=== PATIENT | female | born 1975 | race Caucasian/White ===

== ENCOUNTER 2021-10-20 08:39 | Emergency (ER) | payer BC, SELFPAY ==
[2021-10-20 08:48] VITALS: BP 151/99; PULSE 87; RESP 20; TEMP 37.2; O2SAT 99
--- NOTE | 2021-10-20 09:05 | ED.ABDPAIN ---
HPI - Abdominal Pain General Chief Complaint: Abdominal Pain Stated Complaint: abdominal pain, nausea Source: patient Mode of arrival: ambulatory Limitations: no limitations History of Present Illness HPI narrative: Patient presents for evaluation of abdominal pain for the last 2 days. Symptoms are intermittent, occurring every 5 minutes. Pain is primarily in the epigastric region described as cramping . She is experienced nausea without vomiting. No fever, chills, urinary symptoms, vaginal bleeding or discharge. She had some diarrhea 2 days ago and yesterday. She had a solid bowel movement today. She has had similar symptoms with colitis in the past. Antibiotics have helped historically. She is not taking any medications for her symptoms. No additional complaints or concerns. Related Data Allergies Allergy/AdvReac Type Severity Reaction Status Date / Time No Known Allergies Allergy Unverified 12/03/14 13:20 Review of Systems Review of Systems: CONSTITUTIONAL: Denies fever, chills, or sweats. EYES: Denies visual changes, redness, or discharge. ENT: Denies rhinorrhea, congestion, sore throat, or otalgia. CARDIOVASCULAR: Denies chest pain, palpitations, or edema. RESPIRATORY: Denies cough or dyspnea. GASTROINTESTINAL: Reports abdominal pain and nausea. Denies vomiting or diarrhea. GENITOURINARY: Denies dysuria or hematuria. SKIN: Denies rash or itching. MUSCULOSKELETAL: Denies back pain, joint pain, or myalgia. NEUROLOGIC: Denies headache, numbness, dizziness, or weakness. PSYCHIATRIC: Denies anxiety or depression. PMFSH Past Medical History Medical History History of colitis Surgical History Surgical History No pertinent past surgical history Family History Family History Grandparent Diabetes mellitus Mother Hypertension Social History Social History Smoking status: Never smoker Alcohol intake: never Substance use: never Living arrangements: with family Gender identity (if verbalized by the patient): Female Spiritual care concerns: No Exam Narrative: GENERAL: Well-appearing, well-nourished, and in no acute distress. HEAD: Normocephalic, atraumatic. EYES: PERRLA and EOMI. ENT: Nares clear, no rhinorrhea or epistaxis. Mucous membranes moist. Oropharynx without tonsillar hypertrophy exudate or other lesions. Bilateral TMs pearly segura nonbulging NECK: Supple. No adenopathy or masses. No carotid bruits or JVD CHEST: Clear to auscultation. No respiratory distress. No wheezes rales or rhonchi HEART: Regular rate and rhythm. No murmur heard. Normal peripheral pulses. ABDOMEN: Soft, mild diffuse abdominal tenderness without rebound or guarding. Abdomen is nondistended, normal active bowel sounds. EXTREMITIES: Normal range of motion. No edema. SKIN: Warm, dry, no rash. NEURO: No focal deficits. Alert and oriented x3. PSYCH: Normal mood and affect. Course Course Level of Care: Express Care Visit Vital Signs Vital signs: Vital Signs Temperature 37.2 C 10/20/21 08:48 Pulse Rate 87 10/20/21 08:48 Respiratory Rate 20 10/20/21 08:48 Blood Pressure 151/99 H 10/20/21 08:48 Pulse Oximetry 99 10/20/21 08:48 Temperature 37.2 C 10/20/21 08:48 Pulse Rate 87 10/20/21 08:48 Respiratory Rate 20 10/20/21 08:48 Blood Pressure 151/99 H 10/20/21 08:48 Pulse Oximetry 99 10/20/21 08:48 MDM - Abdominal Pain MDM Narrative Medical decision making narrative: This is a 46-year-old female who presented for evaluation of intermittent abdominal pain she has a history of colitis and current symptoms seem consistent with that. She has some diffuse abdominal tenderness on exam but has no rebound or guarding. I advised that she go to
== END 2021-10-20 09:29 | disposition short-term general hospital (02) ==
PROVIDERS: Emergency Provider Nurse Practitioner; PCP Family Medicine
DX: R10.9 Unspecified abdominal pain (principal); R11.0 Nausea
CPT/HCPCS: 99202; G0463

== ENCOUNTER 2021-10-20 09:23 | Observation (INO) | payer BC, SELFPAY ==
--- NOTE | ~2021-10-20 | CT_ITS ---
EXAMINATION: CT abdomen pelvis w con DATE: 10/20/2021 10:57 INDICATION: Periumbilical abdominal pain. Nausea. Diarrhea. TECHNIQUE: Computed tomography (CT) of the abdomen and pelvis was performed with 100 mL Omnipaque 350 intravenous contrast. Automated exposure control and iterative reconstruction technique were employe d. The dose-length product was 1413.48 mGy-cm. COMPARISON: CT abdomen and pelvis 07/03/2018 FINDINGS: The visualized portions of the lung bases demonstrate minimal atelectasis. No pleural effus ion. The heart size is normal. No pericardial effusion. There is a 5 mm cyst in the liver. The gallbl adder, spleen, pancreas, adrenal glands, and kidneys are normal. There is diverticulosis of the colon . The appendix is normal. There is wall thickening of the distal 40 cm of ileum. There is dilated sma ll bowel proximal to this area. There is wall thickening from the distal transverse colon to the sigm oid colon. There is a small volume of ascites. There are no pathologically enlarged lymph nodes. Ther e is severe lumbar spondylosis. IMPRESSION: 1. Wall thickening of colon and distal ileum, consistent with enterocolitis. 2. Mildly dilated mid small bowel, consistent with adynamic ileus versus partial small bowel obstruct ion. 3. Small volume of ascites. Reviewed, dictated and finalized at location A. IMPRESSION: 1. Wall thickening of colon and distal ileum, consistent with enterocolitis. 2. Mildly dilated mid small bowel, consistent with adynamic ileus versus partia l small bowel obstruction. 3. Small volume of ascites.
--- NOTE | ~2021-10-20 | XR_ITS ---
EXAMINATION: XR abdomen obstructive series DATE: 10/21/2021 10:21 INDICATION: Bowel obstruction. TECHNIQUE: Upright and supine views of the abdomen on 3 radiographs were obtained. COMPARISON: CT abdomen and pelvis 10/20/2021 FINDINGS: There are dilated loops of small bowel. The colon is normal in caliber. No free intraperito cele gas. IMPRESSION: 1. Persistently dilated small bowel, consistent with adynamic ileus versus small bowel obstruction. Reviewed, dictated and finalized at location A. IMPRESSION: 1. Persistently dilated small bowel, consistent with adynamic ileus versus smal l bowel obstruction.
[2021-10-20 09:40] VITALS: BP 147/99; PULSE 93; RESP 16; TEMP 36.7; O2SAT 98
--- NOTE | 2021-10-20 10:01 | ED.ABDPAIN ---
HPI - Abdominal Pain General Chief Complaint: Abdominal Pain Stated Complaint: abd pain, cramping, hx of diverticulitis Time Seen by Provider: 10/20/21 09:53 Source: RN notes reviewed History of Present Illness HPI narrative: Patient presents emergency room from home for abdominal pain. Patient states pain began 2 days ago. The pain is located in the mid and lower abdomen described as cramping and nature states the pain does not radiate. States it is associate with nausea. She denies any fevers or chills vomiting diarrhea or any other symptoms. She gone to urgent care and was referred to the ER for further evaluation states she does have a history of colitis and diverticulitis patient did not taking pain medication this morning Related Data Allergies Allergy/AdvReac Type Severity Reaction Status Date / Time No Known Allergies Allergy Verified 10/20/21 10:05 Review of Systems Review of Systems: Gen.: Denies fevers or chills ENT: Denies congestion Respiratory: Denies shortness of breath or cough CV: Denies chest pain or palpitations GI: See HPI denies burning, urgency, frequency or hematuria Musculoskeletal: Denies back pain or muscle pain Neuro: Denies numbness, tingling, weakness or focal weakness Skin: Denies rash Except as documented, all other systems reviewed and negative [facility] Past Medical History Medical History History of colitis Surgical History Surgical History No pertinent past surgical history Family History Family History Grandparent Diabetes mellitus Mother Hypertension Social History Social History Smoking status: Never smoker Alcohol intake: never Substance use: never Gender identity (if verbalized by the patient): Female Spiritual care concerns: No Exam Narrative: APPEARANCE: No acute distress, nontoxic, resting in bed HEENT: Normocephalic, atraumatic, OMM RESPIRATORY: No respiratory distress, clear to auscultation bilaterally with no rhonchi wheezing or rales CARDIOVASCULAR: RRR s murmur ABDOMINAL: Soft nondistended tender palpation in right lower quadrant and left lower quadrant no tenderness right upper quadrant left lower quadrant rebound or guarding MUSCULOSKELETAl: Moves all extremities. No clubbing, cyanosis or edema. NEURO: Awake and alert. Following commands, speech normal, no focal deficits SKIN:: Warm, dry. Normal Color PSYCHIATRIC: Normal affect/mood Course Course Emergency Course: Discussed with Dr. Martínez with admission with consult to general surgery Discussed Dr. Stallings presentation work-up agrees with consult at this time with no active vomiting agrees with plan for no NG tube Discussed with patient and family results of workup and diagnosis. Discussed need for admission. Patient and family understand and agree to current treatment plan Vital Signs Vital signs: Vital Signs Temperature 98.1 F 10/20/21 09:40 Pulse Rate 93 10/20/21 09:40 Respiratory Rate 16 10/20/21 09:40 Blood Pressure 147/99 H 10/20/21 09:40 Pulse Oximetry 98 10/20/21 09:40 Oxygen Delivery Room Air 10/20/21 09:40 Temperature 97.9 F 10/20/21 12:08 Pulse Rate 71 10/20/21 12:08 Respiratory Rate 16 10/20/21 12:08 Blood Pressure 138/87 10/20/21 12:08 Pulse Oximetry 100 10/20/21 12:08 Oxygen Delivery Room Air 10/20/21 09:40 MDM - Abdominal Pain Lab Data Result diagrams: 10/20/21 10:06 10/20/21 10:06 Labs: Lab Results 10/20/21 10/20/21 10/20/21 Range/Units 10:06 10:06 10:06 WBC 12.9 H (4.5-10.0) K/mm3 RBC 4.92 (4.2-5.4) M/mm3 Hgb 14.3 (12.0-15.0) g/dL Hct 42.6 (37.0-47.0) % MCV 86.6 (80-100) fl MCH 29.1 (26-34) pg MCHC 33.6 (32-36
[2021-10-20] MEDS: SODIUM CHLORIDE 0.9% IV 1,000 ML 999 ML IV CONT (10:13)
[2021-10-20] MEDS: ONDANSETRON INJ 4 MG/2 ML VIAL IV PUSH (10:13)
[2021-10-20] MEDS: KETOROLAC 30 MG/ML VIAL (*BKC) IV PUSH (10:13)
[2021-10-20 10:14] LABS: Basophils Percent Auto 0.3 % (0.2-1.2); Eosinophils Absolute Auto 0.2 K/mm3 (0-0.3); Eosinophils Percent Auto 1.4 % (0-4.4); Hematocrit 42.6 % (37.0-47.0); Hemoglobin 14.3 g/dL (12.0-15.0); Immature Granulocyte Absolute 0.03 K/mm3 (0.00-0.031); Immature Granulocyte Percent A 0.2 % (0-0.5); Lymphocytes Percent Auto 10.9 % (18.3-44.2); Mean Corpuscular HGB Conc 33.6 g/dl (32-36); Mean Corpuscular Hemoglobin 29.1 pg (26-34); Mean Corpuscular Volume 86.6 fl (80-100); Mean Platelet Volume 10.8 fl (7.4-10.4); Monocytes Absolute Auto 0.5 K/mm3 (0.1-0.6); Neutrophils Absolute Auto 10.7 K/mm3 (1.3-6.7); Neutrophils Percent Auto 83.2 % (45.5-73.1); Platelet Count Result 343 k/mm3 (150-375); Red Blood Count 4.92 M/mm3 (4.2-5.4); Red Cell Distribution Width 13.2 % (11.5-14.5); White Blood Count 12.9 K/mm3 (4.5-10.0)
[2021-10-20 10:27] LABS: Alanine Aminotransferase 16 U/L (6-35); Albumin Level 4.7 g/dL (3.5-5.1); Alkaline Phosphatase 91 U/L (38-126); Anion Gap 14 mmol/L (8-16); Aspartate Amino Transferase 20 U/L (14-36); Bilirubin,Total 0.6 mg/dL (0.2-1.3); Blood Urea Nitrogen 7 mg/dL (7-17); Carbon Dioxide 27 mmol/L (22-30); Chloride 99 mmol/L (98-107); Estimated CRCL calculation 109 ml/min; Estimated Glomerular Filt Rate > 60; Glucose 113 mg/dL (65-110); Lipase 24 U/L (23-300); Potassium 4.2 mmol/L (3.4-5.0); Sodium 140 mmol/L (137-145)
[2021-10-20 10:34] LABS: Appearance Urine Clear (Clear); Bilirubin Urine 1+ (Negative); Blood Urine 2+ (Negative); Color Urine Yellow (Yellow); Glucose Urine UA Negative (Negative); Ketones Urine Trace mg/dL (Negative); Leukocyte Esterase Ur Negative LEU/UL (Negative); Nitrate Urine Negative (Negative); Protein Urine Negative (Negative); Specific Grav Ur 1.025 (1.001-1.035); Urobilinogen Urine 0.2 mg/dL (<2.0)
[2021-10-20 10:50] LABS: Add Urine Microscopic? YES
--- NOTE | 2021-10-20 10:50 | PC.NURSE ---
Pt to CT scan via stretcher at this time.
[2021-10-20 10:55] LABS: Bacteria Urine Trace /hpf; Mucus Urine Moderate /lpf; RBC Urine 0-2 /hpf (0-2); Squamous Epithelial Cell Urine Many /hpf (Few); WBC Urine 0-3 /hpf (0-3)
[2021-10-20 12:08] VITALS: BP 138/87; PULSE 71; RESP 16; TEMP 36.6; O2SAT 100
[2021-10-20 12:31] LABS: Lactic Acid Reflex 0.7 mmol/L (0.7-2.0)
--- NOTE | 2021-10-20 12:48 | ADMGEN ---
This patient, Faith Palomares, was admitted to 2 Medical Room 255-. Patient/family oriented to hospital policies and general routines including ID bracelet, bed and alarms, visiting hours, pain management, procedures, bathroom and other care routines, personal items, smoking policy, room service/diet, and visiting hours. Information on how to activate the Rapid Response Team has been discussed. Patient/Family are encouraged to report perceived risks to care and to ask questions if they do not understand what they are told or what they should do.
--- NOTE | 2021-10-20 13:15 | PM.CNGS ---
Assessment and Plan Assessment and plan (1) Enterocolitis: Code(s): K52.9 - Noninfective gastroenteritis and colitis, unspecified Status: Acute Assessment and Plan: exam largely benign, will start clears, IV abx, GI consult (2) Partial obstruction of small intestine: Code(s): K56.600 - Partial intestinal obstruction, unspecified as to cause Status: Acute Assessment and Plan: exam benign, will start clears History of Present Illness Consult details Consult date: 10/20/21 Reason for consult: abdominal pain Requesting physician: Mateo Kong MD Narrative: The patient is a 46-year-old female presenting to the emergency department complaining of diffuse, crampy lower abdominal pain for the past 42-72 hours. The patient reports the pain comes in waves and can be quite severe. The patient reports associated nausea, bloating, poor appetite. The patient reports she had a similar episode about a year ago and was diagnosed with colitis. Workup in the emergency department, including imaging, is significant for enterocolitis, early small-bowel obstruction. Review of Systems Constitutional: Constitutional: Reports as per HPI, Reports anorexia, Denies chills, Denies fatigue, Denies fever(s), Denies headache(s), Reports lethargy, Denies malaise, Reports poor appetite, Denies weakness, Denies weight gain and Denies weight loss Eyes: Eyes: Reports no additional eye complaints ENT: Denies dysphagia, Denies headache(s), Denies hearing loss and Denies sore throat Cardiovascular: Cardiovascular: Denies chest pain, Denies syncope, Denies irregular heart rhythm, Denies leg edema and Denies dyspnea Respiratory: Respiratory: Denies cough and Denies dyspnea Gastrointestinal: Gastrointestinal: Reports as per HPI, Reports abdominal pain, Reports bloating, Denies change in bowel habits, Denies change in stool character, Denies constipation, Denies dysphagia, Denies heartburn, Denies diarrhea, Reports nausea and Denies vomiting Genitourinary: Genitourinary: Denies urinary frequency, Denies dysuria and Denies urinary urgency Musculoskeletal: Musculoskeletal: Denies myalgias, Denies arthralgias and Denies muscle cramps Integumentary/Breasts: Skin/Breast: Denies non-healing lesions and Denies rash Neurologic: Denies syncope, Denies headache(s) and Denies loss of vision Psychiatric: Psychiatric: Reports no additional psychiatric complaints Endocrine: Endocrine: Denies change in body appearance and Denies fatigue Hematologic/Lymphatic: Hematologic/Lymphatic: Denies easy bleeding, Denies easy bruising and Denies lymphadenopathy Allergic/Immunologic: Allergic/Immunologic: Reports no additional allergic/immunologic complaints [facility] Past Medical History Medical History Colitis Surgical History Surgical History History of 2 sections History of foot surgery Plantar fasciotomy. Family History Family History Grandparent Diabetes mellitus Mother Hypertension Social History Social History Social History: Surrogate medical decision maker: Clark Palomares, spouse. Code status: Full code. Smoking status: Never smoker Alcohol intake: never Substance use: never Spiritual care concerns: No Meds Home Medications and Allergies Allergies Allergy/AdvReac Type Severity Reaction Status Date / Time No Known Allergies Allergy Verified 10/20/21 10:05 Vital Signs Vital Signs - 24 hr 10/20/21 09:40 10/20/21 12:08 Temperature 36.7 C 36.6 C Pulse Rate 93 71 Respiratory Rate 16 16 Blood Pressure 147/99 H 138/87 Pulse Oximetry 98 100 Oxygen Delivery Room Air Exam Const: General: cooperative, no acute distress, tired appearing and uncomfortable Nutritional Appe
[2021-10-20 13:25] VITALS: BMI 45.6
[2021-10-20 13:34] VITALS: BP 136/76; PULSE 70; RESP 17; TEMP 36.7; O2SAT 98
[2021-10-20] MEDS: SODIUM CHLORIDE 0.9% IV 1,000 ML 125 ML IV CONT ×2 (13:47→22:14)
--- NOTE | 2021-10-20 14:35 | PC.NURSE ---
Called Minda to notify her that patient has nothing ordered for pain and she did not answer. Left voicemail stating paitent's abdominal pain in 5/10 and left call back number.
[2021-10-20] MEDS: MORPHINE SULFATE (*CRX) 2 MG/ML INJ IV PUSH ×2 (16:26→23:17)
--- NOTE | 2021-10-20 21:00 | PM.IMHP ---
H&P: HPI History of Present Illness Date/Time: 10/20/21 21:00 Chief Complaint: Abdominal pain. Narrative: This is a 46 female with history of enteritis who presented to the emergency department from home for evaluation of abdominal pain for the past 2 days. She reports a gradual onset of nonradiating, mid to lower abdominal cramping pain that seems to come and go in waves of intensity associated with nausea, bloating, and a poor appetite. She had a similar episode about a year ago at which time she was diagnosed with colitis and an episode in 2016 where she was noted to have severe terminal ileus on imaging. Today a CT of the abdomen and pelvis shows wall thickening of the colon and distal ileum consistent with enterocolitis and mildly dilated mid small bowel consistent with ileus versus partial small-bowel obstruction and she is being admitted in this setting for further treatment and evaluation. As the day has progressed, she has started passing gas and she seems to be feeling a bit better. She was able to tolerate a clear liquid diet this evening without nausea or vomiting. She still has some mild bloating however. She denies fever, chills, and sweats. Weight has remained stable. She has no known history of inflammatory bowel disease and she has never had a colonoscopy. Review of Systems Review of Systems: Twelve systems were reviewed and are negative except for as per HPI. [facility] Past Medical History Medical History Colitis Degenerative disc disease Urinary tract infection Surgical History Surgical History History of 2 sections History of foot surgery Plantar fasciotomy. Family History Family History Grandparent Diabetes mellitus Mother Hypertension Social History Social History Social History: Surrogate medical decision maker: Clark Palomares, spouse. Code status: Full code. Smoking status: Never smoker Second hand tobacco smoke exposure: No Alcohol intake: never Substance use: never Spiritual care concerns: No Meds Home Medications and Allergies Home Medications Medication Instructions Recorded Confirmed Type No Home Medications 10/20/21 10/20/21 History Allergies Allergy/AdvReac Type Severity Reaction Status Date / Time No Known Allergies Allergy Verified 10/20/21 10:05 Vital Signs Vital Signs - 24 hr 10/20/21 09:40 10/20/21 12:08 Temperature 98.1 F 97.9 F Pulse Rate 93 71 Respiratory Rate 16 16 Blood Pressure 147/99 H 138/87 Pulse Oximetry 98 100 Oxygen Delivery Room Air Exam Narrative: General: Well-developed female lying on her right side in bed in no distress. Weight: 20.6 kg. BMI: 45.6. HEENT: PERRL, EOMI. Sclera anicteric. Tacky mucous membranes. Neck: Supple. Respiratory: Lungs are clear to auscultation bilaterally. Cardiovascular: Regular rate and rhythm with S1-S2. Gastrointestinal: Abdomen is soft and obese with positive bowel sounds. She has mild tenderness to palpation diffusely throughout the abdomen. No guarding or rebound tenderness. Skin: Warm and dry. No rash or lesions on limited exam. Extremities: No cyanosis, clubbing, or edema. Radial and pedal pulses intact. Neurological: Alert. Cranial nerves 2-12 are grossly intact. No gross focal deficits to casual conversation. Psychiatric: Pleasant and cooperative with normal mood and affect. Judgment and insight intact. H&P: Results Labs Labs: Short CBC 10/20/21 Range/Units 10:06 WBC 12.9 H (4.5-10.0) K/mm3 Hgb 14.3 (12.0-15.0) g/dL Hct 42.6 (37.0-47.0) % Plt Count 343 (150-375) k/mm3 [facility] 10/20/21 10:06 Sodium 140 Potassium 4.2 Chloride 99 Carbon Dioxide 27 BUN 7 Creatinine 0.70 Glucose 113 H Calcium 9.
[2021-10-20 21:12] VITALS: BP 129/83; PULSE 72; RESP 18; TEMP 36.7; O2SAT 99
[2021-10-20] MEDS: traMADol HCL (*CRX) 50 MG TABLET PO (22:16)
[2021-10-21] MEDS: traMADol HCL (*CRX) 50 MG TABLET PO (04:16)
[2021-10-21 05:01] LABS: Basophils Percent Auto 0.4 % (0.2-1.2); Eosinophils Absolute Auto 0.2 K/mm3 (0-0.3); Eosinophils Percent Auto 4.1 % (0-4.4); Hemoglobin 10.7 g/dL (12.0-15.0); Immature Granulocyte Absolute 0.01 K/mm3 (0.00-0.031); Immature Granulocyte Percent A 0.2 % (0-0.5); Lymphocytes Absolute Auto 1.68 K/mm3 (0.9-3.2); Lymphocytes Percent Auto 31.3 % (18.3-44.2); Mean Corpuscular HGB Conc 32.4 g/dl (32-36); Mean Corpuscular Hemoglobin 29.2 pg (26-34); Mean Corpuscular Volume 89.9 fl (80-100); Mean Platelet Volume 10.4 fl (7.4-10.4); Monocytes Absolute Auto 0.3 K/mm3 (0.1-0.6); Monocytes Percent Auto 5.8 % (2.6-8.5); Neutrophils Absolute Auto 3.1 K/mm3 (1.3-6.7); Neutrophils Percent Auto 58.2 % (45.5-73.1); Platelet Count Result 200 k/mm3 (150-375); Red Blood Count 3.67 M/mm3 (4.2-5.4); Red Cell Distribution Width 13.3 % (11.5-14.5); White Blood Count 5.4 K/mm3 (4.5-10.0)
[2021-10-21 05:17] LABS: Alanine Aminotransferase 12 U/L (6-35); Albumin Level 3.4 g/dL (3.5-5.1); Alkaline Phosphatase 63 U/L (38-126); Anion Gap 12 mmol/L (8-16); Aspartate Amino Transferase 18 U/L (14-36); Bilirubin,Total 0.4 mg/dL (0.2-1.3); Blood Urea Nitrogen 4 mg/dL (7-17); Calcium 7.9 mg/dL (8.4-10.2); Carbon Dioxide 25 mmol/L (22-30); Chloride 102 mmol/L (98-107); Estimated CRCL calculation 126 ml/min; Estimated Glomerular Filt Rate > 60; Glucose 99 mg/dL (65-110); Magnesium 1.9 mg/dL (1.6-2.3); Potassium 3.6 mmol/L (3.4-5.0); Sodium 139 mmol/L (137-145)
[2021-10-21 05:38] VITALS: BP 115/62; PULSE 70; RESP 17; TEMP 37; O2SAT 98
--- NOTE | 2021-10-21 08:49 | WPDGICN ---
Assessment and Plan Assessment and plan (1) Enterocolitis: Code(s): K52.9 - Noninfective gastroenteritis and colitis, unspecified Status: Acute Assessment and Plan: Patient admitted with abdominal pain CT scan suggesting enterocolitis. This likely correlates with recent diarrhea. Infectious etiology is most likely. Inflammatory bowel disease is less likely but cannot be excluded at this time. Plan is to complete course of antibiotics. Outpatient colonoscopy can be performed electively after antibiotics have been completed. Should diarrhea recur then stool cultures should be obtained. Will advance diet initially to low-fiber diet. Discharge if pain adequately controlled in tolerating diet. GI Consult Note Consult date/time: 10/21/21 08:49 Reason for consult: Antral colitis HPI: Faith Palomares is a 46 year old female I am asked to see because of enterocolitis. Patient reports having had diarrhea on Thursday. Diarrhea resolved on Thursday but she began to have abdominal cramping. Typically she would have cramps in mid epigastric area. Pain became rather intense and for this reason went to the emergency room yesterday. CT scan revealed inflammation the terminal ileum and colon. Patient denies any bleeding. She states diarrhea is resolved and in fact has had a normal stool. She denies a fever. After admission patient and placed on broad-spectrum antibiotics. She did require pain injection initially but took oral pain medications early this morning because pain was improving. Patient's family history is noncontributory. She reports never having add a colonoscopy. Patient states 5 years ago was treated for diverticulitis. Review of Systems Review of Systems: Review of systems noncontributory. [facility] Past Medical History Medical History Colitis Degenerative disc disease Urinary tract infection Surgical History Surgical History History of 2 sections History of foot surgery Plantar fasciotomy. Family History Family History Grandparent Diabetes mellitus Mother Hypertension Social History Social History Social History: Surrogate medical decision maker: Clark Palomares, spouse. Code status: Full code. Smoking status: Never smoker Second hand tobacco smoke exposure: No Alcohol intake: never Substance use: never Spiritual care concerns: No Meds Home Medications and Allergies Home Medications Medication Instructions Recorded Confirmed Type No Home Medications 10/20/21 10/20/21 History Allergies Allergy/AdvReac Type Severity Reaction Status Date / Time No Known Allergies Allergy Verified 10/20/21 10:05 Vital Signs Vital Signs - 24 hr 10/20/21 09:40 10/20/21 12:08 10/20/21 13:34 Temperature 98.1 F 97.9 F 98.1 F Pulse Rate 93 71 70 Respiratory Rate 16 16 17 Blood Pressure 147/99 H 138/87 136/76 Pulse Oximetry 98 100 98 Oxygen Delivery Room Air 10/20/21 15:45 10/20/21 20:00 10/20/21 21:12 Temperature 98.1 F Pulse Rate 72 Respiratory Rate 18 Blood Pressure 129/83 Pulse Oximetry 99 Oxygen Delivery Room Air Room Air 10/21/21 05:38 Temperature 98.6 F Pulse Rate 70 Respiratory Rate 17 Blood Pressure 115/62 Pulse Oximetry 98 Oxygen Delivery Exam Narrative: Physical exam reveals patient to be alert. Vital signs stable. HEENT exam is unremarkable. Patient is anicteric. Lungs are clear to auscultation and percussion. Heart is without murmur or extra sounds. Abdomen bowel sounds present soft no localized tenderness at this time. No masses appreciated. Results Labs CBC & Chem 7: 10/21/21 04:54 10/21/21 04:54 Labs: Short CBC
[2021-10-21] MEDS: ACETAMINOPHEN 325 MG TABLET 650 MG PO (09:18)
[2021-10-21] MEDS: ONDANSETRON INJ 4 MG/2 ML VIAL IV PUSH (10:48)
--- NOTE | 2021-10-21 12:02 | PM.PNGS ---
Progress Note: A&P Assessment and Plan (1) Enterocolitis: Code(s): K52.9 - Noninfective gastroenteritis and colitis, unspecified Status: Acute Assessment and Plan: exam benign, cont abx, low fiber diet Subjective Subjective Date/Time Seen: 10/21/21 12:02 feels much better, no pain, hungry, dorothy clears Review of Systems Review of Systems: All systems reviewed & are unremarkable except as noted in HPI and below Exam Const: General: cooperative, comfortable and no acute distress Resp: Auscultation: clear to auscultation bilaterally Cardio: Rate: regular rate Rhythm: regular rhythm GI: Inspection: normal to inspection and non-distended GI Palp: No abdominal tenderness, Yes Soft to palpation, No Tenderness to palpation present (GI), No Guarding due to palpation present (GI) and No Rigid due to palpation Objective Data Vital Signs Vital Signs: Vital Signs - 24 hr 10/20/21 12:08 10/20/21 13:34 10/20/21 15:45 Temperature 36.6 C 36.7 C Pulse Rate 71 70 Respiratory Rate 16 17 Blood Pressure 138/87 136/76 Pulse Oximetry 100 98 Oxygen Delivery Room Air 10/20/21 20:00 10/20/21 21:12 10/21/21 05:38 Temperature 36.7 C 37.0 C Pulse Rate 72 70 Respiratory Rate 18 17 Blood Pressure 129/83 115/62 Pulse Oximetry 99 98 Oxygen Delivery Room Air 10/21/21 09:20 Temperature Pulse Rate Respiratory Rate Blood Pressure Pulse Oximetry Oxygen Delivery Room Air Intake/Output Intake/Output: Intake & Output 10/18/21 10/19/21 10/20/21 10/21/21 23:59 23:59 23:59 23:59 Intake Total 2900 2070 Output Total 600 Balance 2900 1470 Meds/Results Medications: Active Medications Generic Name Dose Route Start Last Admin Trade Name Freq PRN Reason Stop Dose Admin Acetaminophen 650 mg 10/20/21 15:34 10/21/21 09:18 Acetaminophen 325 Mg Tablet PO 650 mg Q6H PRN Administration Mild Pain (1-3) or Fever Piperacillin/Tazobactam/Dextrose 3.375 gm in 50 mls @ 100 mls/hr 10/20/21 18:00 10/21/21 05:42 Zosyn 3.375 Gm/D5w 50ml Pm IVPB Infused Q6HR NICOLAS Infusion Morphine Sulfate 2 mg 10/20/21 15:34 10/20/21 23:17 Morphine Sulfate (*Crx) 2 Mg/Ml Inj IV PUSH 2 mg Q4H PRN Administration Pain Rated 7-10 Ondansetron HCl 4 mg 10/20/21 11:38 10/21/21 10:48 Ondansetron Inj 4 Mg/2 Ml Vial IV PUSH 4 mg Q4H PRN Administration Nausea Tramadol HCl 50 mg 10/20/21 15:34 10/21/21 04:16 Tramadol Hcl (*Crx) 50 Mg Tablet PO 50 mg Q6H PRN Administration Pain Rated 4-6 Radiology Results: ITS Impressions Abdomen/Pelvis CT 10/20/21 11:03 IMPRESSION: 1. Wall thickening of colon and distal ileum, consistent with enterocolitis. 2. Mildly dilated mid small bowel, consistent with adynamic ileus versus partial small bowel obstruction. 3. Small volume of ascites. Abdomen X-Ray 10/21/21 10:24 IMPRESSION: 1. Persistently dilated small bowel, consistent with adynamic ileus versus small bowel obstruction. Labs Labs: Laboratory Results - last 24 hr 10/20/21 10/21/21 10/21/21 12:07 04:54 04:54 WBC 5.4 RBC 3.67 L Hgb 10.7 L D Hct 33.0 L MCV 89.9 MCH 29.2 MCHC 32.4 RDW 13.3 Plt Count 200 MPV 10.4 Immature Gran % (Auto) 0.2 Neut % (Auto) 58.2 Lymph % (Auto) 31.3 Hartley % (Auto) 5.8 Eos % (Auto) 4.1 Baso % (Auto) 0.4 Lymph # (Auto) 1.68 Hartley # (Auto) 0.3 Eos # (Auto) 0.2 Baso # (Auto) 0.0 Abs Immat Gran (auto) 0.01 Absolute Neuts (auto) 3.1 Absolute Nucleated RBC 0.0 Nucleated RBC % 0.0 Sodium 139 Potassium 3.6 Chloride 102 Carbon Dioxide 25 Anion Gap 12 BUN 4 L Creatinine 0.60 L Estim Creat Clear Calc 126 Estimated GFR > 60 Glucose 99 Lactic Acid 0.7 Calcium 7.9 L Magnesium 1.9 Total Bilirubin 0.4 AST 18 ALT 12 Alkaline Phosphatase 63 Total Protein 6.0 L Albumin
[2021-10-21 12:48] LABS: Hematocrit 34.7 % (37.0-47.0); Hemoglobin 11.1 g/dL (12.0-15.0)
--- NOTE | 2021-10-21 13:58 | PM.DS ---
DS: Admitting Diagnosis Discharge Date 10/21/2021 Admitting Diagnosis Enterocolitis DS: Discharge Diagnosis Discharge Diagnosis (1) Enterocolitis: Code(s): K52.9 - Noninfective gastroenteritis and colitis, unspecified Status: Acute Assessment and Plan: This was her 3rd occurrence of colitis. She has no known history of inflammatory bowel disease though she has never had a colonoscopy. She was seen in consultation by Gastroenterology during admission. She was treated with IV Zosyn during admission. Diet was slowly advanced and she was able to tolerate a bland, low-fiber diet. She will continue p.o. cefdinir and Flagyl as an outpatient to complete a 7 day course of antibiotics. Short course of analgesics and antispasmodic provided. She will need to follow-up with GI as outpatient for elective colonoscopy. (2) Partial obstruction of small intestine: Code(s): K56.600 - Partial intestinal obstruction, unspecified as to cause Status: Acute Assessment and Plan: Suggested on imaging on presentation. Patient initially made NPO and rehydrated with IV fluids. Bowel function returned and she was able to tolerate her diet. Evaluated by General surgery. (3) Normocytic anemia: Code(s): D64.9 - Anemia, unspecified Status: Acute Assessment and Plan: Hemoglobin with 4 point drop during admission Suspect dilutional effect. No evidence of bleeding. Repeat H&H stable, slightly improved. Follow up with PCP for routine monitoring Elective colonoscopy to be scheduled. DS: Summary Hospital Course Hospital Course: Date of admission: 10/20/2021 Date of discharge: 10/21/2021 Radha Palomares is a 46-year-old female with a history of colitis who presented to the emergency department on 10/20/2021 with complaints of abdominal pain ongoing for 2 days. On presentation to the ED, vital signs were stable, WBC mildly elevated at 12.9, additional laboratory workup unremarkable, and CT of the abdomen/pelvis showed wall thickening of the colon and distal ileum consistent with enterocolitis and mildly dilated mid small bowel consistent with adynamic ileus vs partial SBO. She was admitted to the hospitalist service for further evaluation and management was seen in consultation by General surgery and Gastroenterology. Please see above for further details. Symptomatic improvement with IV antibiotics and will continue p.o. antibiotics on discharge. Able to tolerate diet. Will follow up with GI as an outpatient for colonoscopy. Given patient's overall improvement, she was determined to no longer require inpatient care and was discharged in hemodynamically stable condition on 10/21/2021. Discussed with the patient worrisome signs and symptoms for which to return and she was educated on her medications. Time Spent with Patient Time attestation: Total time spent providing and/or coordinating discharge services: 38 minutes Time spent: Greater than 30 minutes Exam Narrative: General: A well-nourished, well-appearing 46-year-old female, sitting up in bed, comfortable, NARD Neuro: awake, alert and oriented x4, speech clear, no focal neuro deficits noted HEENMT: normocephalic, atraumatic, EOMI, sclerae anicteric Respiratory: clear to auscultation bilaterally, nonlabored breathing Cardio: regular rate, regular rhythm with S1-S2 Abdomen: nondistended, normoactive bowel sounds, soft, nontender to palpation Extremities: no edema, erythema, or tenderness to palpation, DP pulses 2+ bilaterally Skin: no rashes or lesions, warm and dry Psych: appropriate mood and affect, judgment and insight intact DS: Data Data Completed and Pending Labs on day of discharge: Labs from last 24 hours 10/21/21 10/21/21 10/21/21 12:44 04:54 04:54 WBC 5.4 RBC 3.67 L Hgb 11.1 L 10.7 L D Hct 34.7 L 33.0 L MCV 89.9 MCH 29.2 MCHC 32.4 RDW 13.3 Plt Count 200 MPV 10.4 Immatur
== END 2021-10-21 14:39 | disposition home or self-care (01) ==
LOC: ANHED 10:13 → ANH2MED 12:15
PROVIDERS: Physician Assistant; Admitting Provider Chiropractor; Emergency Provider Emergency Medicine; PCP Family Medicine; Visit Provider Internal Medicine
DX: K52.9 Noninfective gastroenteritis and colitis, unspecified (principal); K56.600 Partial intestinal obstruction, unspecified as to cause; R18.8 Other ascites; D64.9 Anemia, unspecified; D72.829 Elevated white blood cell count, unspecified; Z87.19 Personal history of other diseases of the digestive system
CPT/HCPCS: 36415; 74019; 74177; 80053; 81001; 81025; 83605; 83690; 83735; 85014; 85018; 85025; 96361; 96365; 96375; 96376; 99285; A9270; G0378; J1885; J2270; J2405; J2543; J7030; Q9967

== ENCOUNTER 2021-10-29 08:19 | Outpatient (CLI) | payer BC, SELFPAY ==
[2021-10-29 11:59] LABS: Toxigenic C. Diff NEGATIVE (NEGATIVE)
== END 2021-10-29 08:20 | disposition home or self-care (01) ==
LOC: ANHLAB 08:21
PROVIDERS: PCP Family Medicine; Visit Provider Internal Medicine Gastroenterology
DX: R19.7 Diarrhea, unspecified (principal)
CPT/HCPCS: 87045; 87427; 87493

== ENCOUNTER 2021-10-29 14:39 | Outpatient (CLI) | payer BC, SELFPAY ==
[2021-10-29 18:38] LABS: Basophils Absolute Auto 0.1 K/mm3 (0.0-0.1); Basophils Percent Auto 0.9 % (0.2-1.2); Eosinophils Absolute Auto 0.1 K/mm3 (0-0.3); Eosinophils Percent Auto 2.1 % (0-4.4); Hemoglobin 12.6 g/dL (12.0-15.0); Immature Granulocyte Absolute 0.02 K/mm3 (0.00-0.031); Immature Granulocyte Percent A 0.3 % (0-0.5); Lymphocytes Absolute Auto 1.81 K/mm3 (0.9-3.2); Mean Corpuscular HGB Conc 33.2 g/dl (32-36); Mean Corpuscular Hemoglobin 28.9 pg (26-34); Mean Corpuscular Volume 87.2 fl (80-100); Mean Platelet Volume 11.2 fl (7.4-10.4); Monocytes Absolute Auto 0.4 K/mm3 (0.1-0.6); Monocytes Percent Auto 6.3 % (2.6-8.5); Neutrophils Absolute Auto 4.3 K/mm3 (1.3-6.7); Neutrophils Percent Auto 63.4 % (45.5-73.1); Platelet Count Result 320 k/mm3 (150-375); Red Blood Count 4.36 M/mm3 (4.2-5.4); Red Cell Distribution Width 13.4 % (11.5-14.5); White Blood Count 6.7 K/mm3 (4.5-10.0)
[2021-10-29 19:02] LABS: Alanine Aminotransferase 42 U/L (6-35); Albumin Level 4.3 g/dL (3.5-5.1); Alkaline Phosphatase 62 U/L (38-126); Anion Gap 12 mmol/L (8-16); Aspartate Amino Transferase 40 U/L (14-36); Bilirubin,Total 0.3 mg/dL (0.2-1.3); Blood Urea Nitrogen 8 mg/dL (7-17); Calcium 8.7 mg/dL (8.4-10.2); Carbon Dioxide 26 mmol/L (22-30); Chloride 100 mmol/L (98-107); Estimated Glomerular Filt Rate > 60; Glucose 103 mg/dL (65-110); Sodium 138 mmol/L (137-145)
[2021-11-05 09:14] LABS: Gliadin AB, IgG <1.0; TTG IGA AB <1.0
== END 2021-10-29 14:40 | disposition home or self-care (01) ==
PROVIDERS: PCP Family Medicine; Visit Provider Family Medicine
DX: K52.9 Noninfective gastroenteritis and colitis, unspecified (principal); E83.51 Hypocalcemia
CPT/HCPCS: 36415; 80053; 83516; 85025; 86255

== ENCOUNTER 2021-11-12 00:51 | Day surgery (SDC) | payer BC, SELFPAY ==
[2021-10-28 13:16] VITALS: BMI 44.6
--- NOTE | 2021-11-12 07:56 | PM.HPGS ---
History of Present Illness History of Present Illness Consent: Risks, benefits, and alternatives have been discussed and questions answered. Patient agrees to proceed with procedure. Chief complaint: enterocolitis Narrative: Faith Palomares is a 46 year old female Presents for colonoscopy. Patient admitted to the hospital bowel 3 weeks ago with an enterocolitis. It was felt to be infectious in etiology. Patient treated with a full course of antibiotics. Patient reports after returning home that her bowel habits have returned to normal. She did have diarrhea related to her antibiotic usage. Patient denies any bleeding or weight loss. She presents today for colonoscopy to determine resolution of her infection and to exclude any other causes for enterocolitis. Family history is noncontributory. There is no prior history of inflammatory bowel disease. Review of Systems Review of Systems: Review of systems noncontributory. [facility] Past Medical History Medical History Degenerative disc disease Urinary tract infection Surgical History Surgical History History of 2 sections History of foot surgery Plantar fasciotomy. Family History Family History Grandparent Diabetes mellitus Mother Hypertension Social History Social History (Updated 10/29/21 @ 14:02 by Malini Lal) Social History: Surrogate medical decision maker: Clark Palomares, spouse. Code status: Full code. Caffeine-none Smoking status: Never smoker Second hand tobacco smoke exposure: No Alcohol intake: never Substance use: never Living arrangements: with family Spiritual care concerns: No Meds Home Medications and Allergies Home Medications Medication Instructions Recorded Confirmed Type No Home Medications 10/29/21 10/29/21 History Allergies Allergy/AdvReac Type Severity Reaction Status Date / Time No Known Allergies Allergy Verified 10/29/21 14:00 Exam Narrative: Physical exam reveals patient to be alert. Vital signs stable. HEENT exam is unremarkable. Patient is anicteric. Lungs are clear to auscultation and percussion. Heart is without murmur or extra sounds. Abdomen bowel sounds are present soft nontender with no organomegaly. Digital external rectal exam is normal. Assessment and Plan Assessment and plan (1) Enterocolitis: Code(s): K52.9 - Noninfective gastroenteritis and colitis, unspecified Status: Acute Assessment and Plan: Patient hospitalized recently with enterocolitis felt to be infectious in etiology. Stool cultures were unable to confirm this. Patient did improve after a course of antibiotics. Colonoscopy requested at this time to ensure resolution and exclude any other contributing causes. High-fiber diet is advised at this time. Further recommendations may be given after endoscopy. (2) Obesity: Qualifiers: Obesity type: due to excess calories Obesity classification: adult class 3 (BMI >= 40) Serious obesity comorbidity presence: without serious comorbidity Body mass index: BMI 40.0-44.9 Qualified Code(s): E66.01 - Morbid (severe) obesity due to excess calories; Z68.41 - Body mass index [BMI] 40.0-44.9, adult Code(s): E66.9 - Obesity, unspecified Status: Acute Assessment and Plan: Weight loss with calorie restriction and increase activity are encouraged.
[2021-11-12 08:09] VITALS: BP 163/91; PULSE 74; RESP 18; TEMP 37.1; O2SAT 100
[2021-11-12] MEDS: LACTATED RINGERS 1,000 ML 150 ML IV CONT (08:25)
--- NOTE | 2021-11-12 08:43 | WPDANESEPPF ---
Anes - Initial Pre Proc Eval Procedure: Operation Date: 11/12/21 09:15 Proposed Procedures p Colonoscopy - Jose M Brown MD Date/Time: 11/12/21 08:43 Surgeon: Jose M Brown MD Pre Op Diagnosis: enterocolitis Patient Data Age: 46 Gender: F Height: 1.63 m Weight: 116.4 kg Last Vital Signs Temp 98.8 F 11/12/21 08:09 Pulse 74 11/12/21 08:09 Resp 18 11/12/21 08:09 BP 163/91 H 11/12/21 08:09 Pulse Ox 100 11/12/21 08:09 O2 Del Method Room Air 11/12/21 08:09 Allergies Allergy/AdvReac Type Severity Reaction Status Date / Time No Known Allergies Allergy Verified 11/12/21 08:07 Home Medications Medication Instructions Recorded Confirmed Type No Home Medications 10/29/21 11/12/21 History Patient hx anesthesia problems: none Family hx anesthesia problems: none Results Review: All pre-operative results and documents have been reviewed as part of the pre-operative evaluation. [facility], [facility] Past Medical History Medical History Degenerative disc disease Urinary tract infection Surgical History Surgical History History of 2 sections History of foot surgery Plantar fasciotomy. Family History Family History Grandparent Diabetes mellitus Mother Hypertension Social History Social History (Updated 10/29/21 @ 14:02 by Malini Lal) Social History: Surrogate medical decision maker: Clark Palomares, spouse. Code status: Full code. Caffeine-none Smoking status: Never smoker Second hand tobacco smoke exposure: No Alcohol intake: never Substance use: never Living arrangements: with family Spiritual care concerns: No Anes - Eval Final PreProcedure Day of Procedure 11/12/21 08:43 Patient weight: morbidly obese Heart: regular rate and rhythm Lungs: clear to auscultation Airway: Mallampati scale class II Neurological: alert and oriented Last oral intake: >/= 8 hours ASA classification: III Emergent: no Anesthetic plan: proceed Anesthesia type and monitoring: general GIVS and standard monitoring Results Review: All pre-operative results and documents have been reviewed as part of the pre-operative evaluation. Informed Consent: The patient's anesthetic plan and its attendant risks and benefits were discussed with the patient/family/POA. Questions were solicited and answers provided to the satisfaction of the patient/family/POA.
[2021-11-12 09:33] VITALS: BP 136/82; PULSE 79; RESP 18; O2SAT 100
[2021-11-12 09:43] VITALS: BP 142/86; PULSE 74; RESP 18; O2SAT 100
[2021-11-12 09:53] VITALS: BP 142/94; PULSE 80; RESP 18; O2SAT 100
== END 2021-11-12 10:03 | disposition home or self-care (01) ==
PROVIDERS: PCP Family Medicine; Visit Provider Internal Medicine Gastroenterology
PROC: 0DJD8ZZ Inspection of Lower Intestinal Tract, Via Natural or Artificial Opening Endoscopic (ICD-10-PCS; CPT 45378; principal; 2021-11-12 09:15)
DX: Z09 Encounter for follow-up examination after completed treatment for conditions other than malignant neoplasm (principal); Z87.19 Personal history of other diseases of the digestive system; K64.8 Other hemorrhoids; E66.01 Morbid (severe) obesity due to excess calories; Z68.41 Body mass index [BMI] 40.0-44.9, adult
CPT/HCPCS: 45378; J2704; J7120

== ENCOUNTER 2022-04-21 07:51 | Outpatient (CLI) | payer BC, SELFPAY ==
--- NOTE | ~2022-04-21 | MM_ITS ---
EXAMINATION: MM screening [facility] BI w talisha HISTORY: Screening mammogram TECHNIQUE: Craniocaudal and mediolateral oblique 3-D tomosynthesis images were obtained and synthetic 2-D images were generated. CAD analysis was submitted and interpreted. COMPARISON: 06/07/2018, 06/04/2017 BREAST PARENCHYMAL COMPOSITION: There are scattered areas of fibroglandular density. FINDINGS: No suspicious mass, calcification, or architectural distortion are identified in either yessenia ast to suggest malignancy. There has been no suspicious interval change. IMPRESSION: 1. No mammographic evidence of malignancy. 2. Recommend routine screening mammography in one year. BI-RADS Category 1: Negative Reviewed, dictated and finalized at location A. D [employer]
== END 2022-04-21 07:52 | disposition home or self-care (01) ==
LOC: ANHIMG 07:52
PROVIDERS: PCP Family Medicine; Visit Provider Family Medicine
DX: Z12.31 Encounter for screening mammogram for malignant neoplasm of breast (principal)
CPT/HCPCS: 77063; 77067

== ENCOUNTER 2022-10-26 08:52 | Emergency (ER) | payer BC, SELFPAY ==
--- NOTE | ~2022-10-26 | XR_ITS ---
XR finger 1st RT min 2V DATE: 10/26/2022 09:12 INDICATION: Pain at first metacarpophalangeal area after injury TECHNIQUE: 3 views COMPARISON: 01/24/2013 right hand FINDINGS: No fracture or dislocation or other significant abnormality. IMPRESSION: Negative Reviewed, dictated and finalized at location A. IMPRESSION: Negative
--- NOTE | 2022-10-26 08:55 | ED.UPPEXIN ---
HPI - Extremity Injury (Upper) General Chief Complaint: Extremity Injury, Upper Stated Complaint: R HAND INJURY Time Seen by Provider: 10/26/22 08:55 Source: patient Mode of arrival: ambulatory Limitations: no limitations History of Present Illness HPI narrative: Patient is a 47-year-old female who presents with right hand pain after pushing up on a chair quickly on the edge of the chair. Patient reports there is no bruising or swelling but it is tender to touch. Patient's states she had some numbness initially but that has now resolved. Patient is still able to use hand normally. Did take Tylenol and ice with moderate relief. Related Data Home Medications Medication Instructions Recorded Confirmed No Home Medications 10/26/22 10/26/22 Allergies Allergy/AdvReac Type Severity Reaction Status Date / Time No Known Allergies Allergy Verified 08/25/22 15:30 Review of Systems Review of Systems: All systems reviewed & are unremarkable except as noted in HPI and below Constitutional: Constitutional: Denies body ache(s), Denies chills, Denies fatigue, Denies fever(s), Denies headache(s), Denies malaise and Denies weakness Eyes: Eyes: Denies blurry vision, Denies irritation and Denies loss of vision ENT: Denies otalgia, Denies headache(s), Denies nasal discharge, Denies sinus pain and Denies sore throat Cardiovascular: Cardiovascular: Denies chest pain, Denies irregular heart rhythm and Denies dyspnea Respiratory: Respiratory: Denies dyspnea Gastrointestinal: Gastrointestinal: Denies abdominal pain, Denies melena, Denies hematochezia, Denies diarrhea, Denies nausea and Denies vomiting Musculoskeletal: Musculoskeletal: Denies back pain, Denies myalgias and Reports arthralgias Integumentary/Breasts: Skin/Breast: Denies pruritus and Denies rash Neurologic: Denies headache(s), Denies loss of vision and Denies weakness Psychiatric: Psychiatric: Reports no additional psychiatric complaints Endocrine: Endocrine: Denies fatigue PMFSH Past Medical History Medical History Enterocolitis Normocytic anemia Partial obstruction of small intestine Surgical History Surgical History History of 2 sections History of foot surgery Plantar fasciotomy. Family History Family History Grandparent Diabetes mellitus Mother Hypertension Social History Social History Social History: Surrogate medical decision maker: Clark Palomares, spouse. Code status: Full code. Caffeine-none Smoking status: Never smoker Second hand tobacco smoke exposure: No Alcohol intake: never Substance use: never Living arrangements: with family Spiritual care concerns: No Comments At time of signature, agree with nursing past medical, surgical, social and family history. There is no relevant family history pertinent to the presenting complaint. Exam Const: General: cooperative, healthy appearing, comfortable, no acute distress and well nourished Nutritional Appearance: well nourished Orientation/consciousness: patient oriented x3 Limitations: no limitations HENMT: Head: normal to inspection, normocephalic and atraumatic Ears: hearing grossly normal bilaterally and external ears normal Face/Nose/Sinus: Normal external nose present, normal facial exam and face symmetric Face and sinus: normal facial exam and face symmetric Mouth: Yes lip normal Eyes: General: appearance normal, both eyes and all related structures Alignment and Position: alignment normal and position normal Periorbital: periorbital findings normal Eyelids: eyelids normal Pupils: Equal, round and reactive pupils present EOM: EOMs intact bilaterally Neck: Neck: normal visual inspection, full ROM and supple Chest: Chest palpa
[2022-10-26 09:03] VITALS: BP 128/89; PULSE 72; RESP 16; TEMP 37.1; O2SAT 98
[2022-10-26 09:04] VITALS: BP 128/89; PULSE 72; RESP 16; TEMP 37.1; O2SAT 98
== END 2022-10-26 09:33 | disposition home or self-care (01) ==
PROVIDERS: Emergency Provider Nurse Practitioner Family; PCP Family Medicine
DX: S60.221A Contusion of right hand, initial encounter (principal); T14.90XA Injury, unspecified, initial encounter
CPT/HCPCS: 73140; 99213; G0463

== ENCOUNTER 2022-10-31 08:06 | Outpatient (CLI) | payer BC, SELFPAY ==
[2022-10-31 10:13] LABS: Basophils Absolute Auto 0.1 K/mm3 (0.0-0.1); Basophils Percent Auto 0.9 % (0.2-1.2); Eosinophils Absolute Auto 0.1 K/mm3 (0-0.3); Eosinophils Percent Auto 2.1 % (0-4.4); Hematocrit 38.7 % (37.0-47.0); Hemoglobin 12.2 g/dL (12.0-15.0); Immature Granulocyte Absolute 0.01 K/mm3 (0.00-0.031); Immature Granulocyte Percent A 0.2 % (0-0.5); Lymphocytes Absolute Auto 1.55 K/mm3 (0.9-3.2); Lymphocytes Percent Auto 26.6 % (18.3-44.2); Mean Corpuscular HGB Conc 31.5 g/dl (32-36); Mean Corpuscular Hemoglobin 28.7 pg (26-34); Mean Corpuscular Volume 91.1 fl (80-100); Mean Platelet Volume 11.5 fl (7.4-10.4); Monocytes Absolute Auto 0.3 K/mm3 (0.1-0.6); Monocytes Percent Auto 5.8 % (2.6-8.5); Neutrophils Absolute Auto 3.8 K/mm3 (1.3-6.7); Neutrophils Percent Auto 64.4 % (45.5-73.1); Platelet Count Result 260 k/mm3 (150-375); Red Blood Count 4.25 M/mm3 (4.2-5.4); Red Cell Distribution Width 13.1 % (11.5-14.5); White Blood Count 5.8 K/mm3 (4.5-10.0)
[2022-10-31 10:25] LABS: Alanine Aminotransferase 16 U/L (6-35); Albumin Level 4.2 g/dL (3.5-5.1); Alkaline Phosphatase 72 U/L (38-126); Anion Gap 6 mmol/L (8-16); Aspartate Amino Transferase 24 U/L (14-36); Bilirubin,Total 0.5 mg/dL (0.2-1.3); Blood Urea Nitrogen 11 mg/dL (7-17); Carbon Dioxide 29 mmol/L (22-30); Chloride 104 mmol/L (98-107); Cholesterol 160 mg/dL (0-200); Estimated Glomerular Filt Rate > 60; Glucose 92 mg/dL (65-110); HDL Direct 45 mg/dL; Potassium 4.3 mmol/L (3.4-5.0); Sodium 139 mmol/L (137-145); Triglycerides 59 mg/dL (<150)
[2022-10-31 10:36] LABS: LDL Cholesterol Direct 93 mg/dL
[2022-10-31 10:42] LABS: Hemoglobin A1C 4.6 % (<5.7)
[2022-11-05 02:05] LABS: Immunoglobulin A 171 mg/dL (47-310); TTG IGA AB <1.0 U/mL (<15.0)
== END 2022-10-31 08:07 | disposition home or self-care (01) ==
LOC: ANHGOSHLAB 08:08
PROVIDERS: PCP Family Medicine; Visit Provider Family Medicine
DX: Z00.00 Encounter for general adult medical examination without abnormal findings (principal); K52.9 Noninfective gastroenteritis and colitis, unspecified; E83.51 Hypocalcemia; E66.01 Morbid (severe) obesity due to excess calories; Z68.42 Body mass index [BMI] 45.0-49.9, adult
CPT/HCPCS: 36415; 80053; 80061; 82784; 83036; 84443; 85025; 86364

== ENCOUNTER 2023-06-12 13:57 | Outpatient (CLI) | payer BC, SELFPAY ==
--- NOTE | ~2023-06-12 | MM_ITS ---
EXAMINATION: MM screening [facility] BI w talisha HISTORY: Screening mammogram TECHNIQUE: Craniocaudal and mediolateral oblique 3-D tomosynthesis images were obtained and synthetic 2-D images were generated. CAD analysis was submitted and interpreted. COMPARISON: 04/21/2022, 06/07/2018 bilateral screening mammogram examinations BREAST PARENCHYMAL COMPOSITION: There are scattered areas of fibroglandular density. FINDINGS: There is no evidence of suspicious mass, calcification, or architectural distortion to sugg est malignancy in either breast. There has been no suspicious interval change. IMPRESSION: 1. No mammographic evidence of malignancy. 2. Recommend routine screening mammography in one year. BI-RADS Category 1: Negative Reviewed, dictated and finalized at location A.
== END 2023-06-12 13:58 ==
LOC: MICIMG 13:58
PROVIDERS: PCP Family Medicine; Visit Provider Family Medicine
DX: Z12.31 Encounter for screening mammogram for malignant neoplasm of breast (principal)
CPT/HCPCS: 77063; 77067

== ENCOUNTER 2023-09-08 16:07 | Emergency (ER) | payer BC, SELFPAY ==
--- NOTE | ~2023-09-08 | CT_ITS ---
EXAMINATION: CT abdomen pelvis w con DATE: 09/08/2023 17:49 INDICATION: upper abd pain, N/V/D TECHNIQUE: Computed tomography (CT) of the abdomen and pelvis was performed with 100 mL Omnipaque-350 intravenous contrast. Automated exposure control and iterative reconstruction technique were employe d. The dose-length product was 1352.07 mGy-cm. COMPARISON: 10/20/2021. FINDINGS: Lower thorax: Unremarkable Liver: Subcentimeter hypodensity in the left lobe, likely cyst or hemangioma. Biliary/Gallbladder: Gallbladder is mildly distended. No inflammatory changes or stones. No bile duct dilation. Pancreas: No mass or duct dilation. Spleen: Normal. Adrenals:No mass. Kidneys: No suspicious mass, obstructing stone, or hydronephrosis. GI tract: Long segment wall edema involving the mid and distal ileum. Fluid in the colon. Mild wall e femi in the descending colon. No small or large bowel dilation. Normal appendix. Diverticulosis witho ut diverticulitis. Mesentery/Peritoneum: Mesenteric stranding and small volume mesenteric fluid in the left abdomen, estrella rounding the loops of abnormal ileum. Small volume perisplenic fluid, presumably reactive. No mesente dexter mass or gas. Retroperitoneum: No mass. Pelvis: The urinary bladder is decompressed. Uterus and bilateral ovaries. Small volume free pelvic f luid. Soft Tissues: Soft tissues and body wall unremarkable. Bones: No acute osseous finding. IMPRESSION: Mild gallbladder hydrops, may be secondary to fasting. Obstruction not excluded. Correlate with bilia ry labs. Long segment ileal wall edema, mild descending colonic wall edema, may reflect infectious or inflamma tory enterocolitis. Consider ischemic changes and there is a history of vasculitis. Adjacent mesenter ic inflammatory changes and fluid. Small volume ascites. No free air. Reviewed, dictated and finalized at location K. IMPRESSION: Mild gallbladder hydrops, may be secondary to fasting. Obstruction not excluded . Correlate with biliary labs. Long segment ileal wall edema, mild descending colonic wall edema, may reflect infectious or inflammatory enterocolitis. Consider ischemic changes and there i s a history of vasculitis. Adjacent mesenteric inflammatory changes and fluid. Small volume ascites. No free air.
[2023-09-08 16:14] VITALS: BP 179/96; PULSE 107; RESP 19; TEMP 36.7; O2SAT 97
--- NOTE | 2023-09-08 17:08 | PC.NURSE ---
patient states they are unable to urinate at this time. educated patient to use call light with any urge to provide a urine sample.
[2023-09-08 17:13] LABS: Basophils Absolute Auto 0.1 K/mm3 (0.0-0.1); Basophils Percent Auto 0.4 % (0.2-1.2); Eosinophils Absolute Auto 0.3 K/mm3 (0-0.3); Eosinophils Percent Auto 2.2 % (0-4.4); Hematocrit 42.6 % (37.0-47.0); Immature Granulocyte Absolute 0.05 K/mm3 (0.00-0.031); Immature Granulocyte Percent A 0.4 % (0-0.5); Lymphocytes Absolute Auto 1.58 K/mm3 (0.9-3.2); Lymphocytes Percent Auto 13.8 % (18.3-44.2); Mean Corpuscular HGB Conc 32.9 g/dl (32-36); Mean Corpuscular Hemoglobin 28.5 pg (26-34); Mean Corpuscular Volume 86.8 fl (80-100); Mean Platelet Volume 11.4 fl (7.4-10.4); Monocytes Absolute Auto 0.5 K/mm3 (0.1-0.6); Monocytes Percent Auto 4.3 % (2.6-8.5); Neutrophils Percent Auto 78.9 % (45.5-73.1); Platelet Count Result 349 k/mm3 (150-375); Red Blood Count 4.91 M/mm3 (4.2-5.4); Red Cell Distribution Width 13.4 % (11.5-14.5); White Blood Count 11.5 K/mm3 (4.5-10.0)
[2023-09-08] MEDS: PANTOPRAZOLE SODIUM IV 40 MG VIAL IV PUSH (17:16)
[2023-09-08] MEDS: SODIUM CHLORIDE 0.9% IV 1,000 ML 999 ML IV CONT (17:16)
[2023-09-08] MEDS: ONDANSETRON INJ 4 MG/2 ML VIAL IV PUSH (17:16)
[2023-09-08] MEDS: MORPHINE SULFATE (*CRX) 4 MG/ML INJ IV PUSH (17:20)
[2023-09-08 17:28] LABS: Alanine Aminotransferase 16 U/L (6-35); Albumin Level 4.7 g/dL (3.5-5.1); Alkaline Phosphatase 94 U/L (38-126); Anion Gap 13 mmol/L (4-12); Aspartate Amino Transferase 19 U/L (14-36); Bilirubin,Total 0.7 mg/dL (0.2-1.3); Blood Urea Nitrogen 9 mg/dL (7-17); Calcium 9.3 mg/dL (8.4-10.2); Carbon Dioxide 23 mmol/L (22-30); Chloride 101 mmol/L (98-107); Estimated CRCL calculation 107 ml/min; Estimated Glomerular Filt Rate > 60; Glucose 125 mg/dL (65-110); Lipase 40 U/L (23-300); Potassium 3.7 mmol/L (3.4-5.0); Sodium 137 mmol/L (137-145)
--- NOTE | 2023-09-08 17:29 | ED.ABDPAIN ---
HPI - Abdominal Pain General Chief Complaint: Abdominal Pain Stated Complaint: abdominal pain, n/v/d Time Seen by Provider: 09/08/23 16:57 Source: patient Mode of arrival: ambulatory Limitations: no limitations History of Present Illness HPI narrative: Patient is a 48-year-old female who presents the ED with report of abdominal pain. Patient reports abdominal pain began on Thursday night and has progressively worsened since then. Present throughout upper abdomen. She also reports diarrhea, subjective fevers, nausea/vomiting today. Denies rectal bleeding or melena. Denies hematemesis. Reports she was seen by her PCP today and prescribed dicyclomine. She attempted to take this, but denied improvement. Also tried Tylenol without improvement, which prompted her presentation. Reports history of similar symptoms 2 years ago. Denies family members with similar symptoms. Denies bad food exposure, known sick contacts. Related Data Allergies Allergy/AdvReac Type Severity Reaction Status Date / Time No Known Allergies Allergy Verified 09/08/23 10:01 Review of Systems Review of Systems: CONSTITUTIONAL: Reports subjective fevers. GASTROINTESTINAL: See HPI. GENITOURINARY: Denies dysuria or hematuria. All systems reviewed & are unremarkable except as noted in HPI and below PMFSH Past Medical History Medical History Enterocolitis Normocytic anemia Partial obstruction of small intestine Surgical History Surgical History History of 2 sections History of foot surgery Plantar fasciotomy. Family History Family History Grandparent Diabetes mellitus Mother Hypertension Social History Social History Social History: Surrogate medical decision maker: Clark Palomares, spouse. Code status: Full code. Caffeine-none Smoking status: Never smoker Second hand tobacco smoke exposure: No Alcohol intake: never Substance use: never Lack of Transportation: No Lack of Food: Never True Current Housing: I Have Housing Concerned About Future Housing: No Difficulty Paying Gas/Electric Bills: No Difficulty Paying for Meds: No Currently Unemployed: No Education: Master's Degree or Higher Difficulty w/ Childcare or Family Care: No Living arrangements: with family Spiritual care concerns: No Exam Narrative: GENERAL: Mildly uncomfortable appearing, morbidly obese with BMI of 45.4, non-toxic, in no acute distress. HEAD: Normocephalic, atraumatic. RESPIRATORY: Airway patent, respirations nonlabored. Clear to auscultation bilaterally, no rales, rhonchi, wheezing. CARDIOVASCULAR: Borderline tachycardic with regular rhythm without murmurs, rubs, or gallops. ABDOMINAL: Soft, mild diffuse tenderness throughout abdomen, more significant tenderness in epigastric region. No right upper quadrant tenderness. Nondistended. Normoactive BS. MUSCULOSKELETAL: Moves all extremities. No gross deformities. SKIN: Warm, dry, normal color. NEURO: A&O X3. Speech clear. PSYCHIATRIC: Appropriate mood and affect. Normal interaction. Course Vital Signs Vital signs: Vital Signs Temperature 98.1 F 09/08/23 16:14 Pulse Rate 107 H 09/08/23 16:14 Respiratory Rate 19 09/08/23 16:14 Blood Pressure 179/96 H 09/08/23 16:14 Pulse Oximetry 97 09/08/23 16:14 Oxygen Delivery Room Air 09/08/23 16:14 Temperature 98.5 F 09/08/23 20:25 Pulse Rate 68 09/08/23 20:25 Respiratory Rate 17 09/08/23 20:25 Blood Pressure 132/79 09/08/23 20:25 Pulse Oximetry 100 09/08/23 20:25 Oxygen Delivery Room Air 09/08/23 16:14 MDM - Abdominal Pain MDM Narrative Medical decision making narrative: Patient presented to ED with several day history of upper
[2023-09-08 17:32] VITALS: PULSE 83; RESP 17; O2SAT 97
[2023-09-08 17:59] LABS: Magnesium 2.1 mg/dL (1.6-2.3)
[2023-09-08 18:14] LABS: Appearance Urine Clear (Clear); Bacteria Urine 1+ /hpf; Bilirubin Urine Negative (Negative); Blood Urine Trace (Negative); Color Urine Yellow (Yellow); Glucose Urine UA Negative (Negative); Ketones Urine Trace mg/dL (Negative); Leukocyte Esterase Ur Negative LEU/UL (Negative); Nitrate Urine Negative (Negative); Non Pathogenic Casts 0-2; Protein Urine 2+ mg/dL (Negative); Specific Grav Ur > 1.045 (1.001-1.035); Squamous Epithelial Cell Urine Few /hpf (Few); WBC Urine 0-5 /hpf (0-3); pH Urine 5.5 (5.0-9.0)
[2023-09-08 18:17] LABS: Add Urine Microscopic? YES
[2023-09-08 18:56] LABS: Lactic Acid Reflex 0.8 mmol/L (0.7-2.0)
[2023-09-08] MEDS: CIPROFLOXACIN 500 MG TAB PO (20:23)
[2023-09-08] MEDS: metroNIDAZOLE 500 MG TABLET PO (20:23)
[2023-09-08 20:25] VITALS: BP 132/79; PULSE 68; RESP 17; TEMP 36.9; O2SAT 100
== END 2023-09-08 20:26 | disposition home or self-care (01) ==
PROVIDERS: Student in an Organized Health Care Education/Training Program; Emergency Provider Physician Assistant; PCP Family Medicine
DX: K52.9 Noninfective gastroenteritis and colitis, unspecified (principal); R10.10 Upper abdominal pain, unspecified
CPT/HCPCS: 36415; 74177; 80053; 81001; 83605; 83690; 83735; 85025; 96361; 96374; 96375; 99284; A9270; J2270; J2405; J2470; J7030; Q9967

== ENCOUNTER 2024-07-25 01:51 | Day surgery (SDC) | payer BC, SELFPAY ==
--- NOTE | 2024-07-18 12:31 | PC.NURSE ---
Report to the Outpatient Waiting Room, entrance under the green pavilion located off [facility], at time __6:15 AM on date _07/25/24 . Planned Procedure Time: __8:15 AM .? Time changes happen often and if your time is changed the preop area will call you the afternoon before. - You and your visitor will be asked to self-screen and do not enter if you have any COVID symptoms. Please call surgeon if you need to reschedule. - A mask is optional within the hospital at this time. Patients may have clear liquids (water, carbonated beverages, clear teas, apple juice) until 3 hours prior to surgery ( 5:15 AM ) with a maximum of 20 ounces. - No food from midnight until time of surgery and no smoking, or chewing tobacco (or any form of nicotine). No chewing gum, candy or mints. Take only the following medications with a SIP of water on the morning of surgery: NONE DO NOT STOP ANY OF YOUR OTHER PRESCRIPTION MEDICATIONS PRIOR TO SURGERY EXCEPT THE FOLLOWING Hold all vitamins and supplements for 3 days per anesthesiologist. Medications to discontinue per physician ZEPBOUND TOOK TODAY 07/18/24 Date to take last dose Please no make-up, nail malaysian, hairspray, perfume, deodorant, or body powder the day of surgery.? No jewelry (including any body piercings) or valuables the day of surgery, leave them at home.? Please take a shower or bath the night before, or the morning of, surgery with an antibacterial soap.? Wear comfortable, loose fitting clothing.? Children are encouraged to wear pajamas. - Jewelry must be removed prior to entering the operating room.? Rings and piercings that are not removed may be cut off. - The hospital will not accept responsibility for valuables.? - Please leave all valuables, including medications, at home the day of surgery. If you are going home after surgery, a licensed courier driver must drive you home.? - NO public transportation without another adult if you receive anesthesia. - We recommend that an adult stay with you for 24 hours following discharge. - We also recommend that you do not drive, make important decision, drink alcoholic beverages, or take any drugs that were not prescribed by your health care provider for at least 24 hours after your discharge time. For Pediatric surgeries, we recommend two adults accompany the child home. Follow any additional instructions given to you from your surgeon. Telephone instructions given to __PATIENT and asked if any additional questions and then verbalized understanding. Patient advised to call surgeon office or pre surgery nurse liaison [phone] if any additional questions.
[2024-07-18 12:40] VITALS: BMI 44.6
--- OUTSIDE RECORDS SUMMARY | 2024-07-25 01:56 | XMS_ITS | Clinical Summary ---
Author Organization [facility] Address [address] Attn: Epic Prelude ADT ABNER MARCIAL [id number] Care Team Providers Care Director Of Medical Education Name Role Phone Unavailable Primary Care Provider Unavailabl e Social History Tobacco Use Types Packs/Day Years Used Date Smoking Tobacco: Never Assessed Comments Unknown Sex and Gender Information Value Date Recorded Sex Assigned at Not on file Legal Sex Female 9:42 AM CDT Gender Identity Not on file Sexual Orientation Not on file Plan of Treatment Health Maintenance Due Date Last Done Comments DTAP/TDAP/TD VACCINES (1 - Tdap) 1993 HEPATITIS B VACCINES (1 of 3 - 19+ 3-dose series) 01/16 HPV/Cotest (21-29) 1995 CERVICAL CANCER SCREENING 01/30/2004 HPV/Cotest (30-65) 01/30/2004 PAP SMEAR 01/30/2004 BREAST CANCER SCREENING 2014 COLORECTAL SCREENING 2019 Colorectal Cancer Screening 2019 FIT-DNA Q 3 years 2019 FIT/FOBT Q 1 year 2019 Flex Sig/CT Colonography Q 5 years 2019 INFLUENZA VACCINE (#1) 2023 ZOSTER VACCINE (1 of 2) 01/30/2024
[2024-07-25 07:00] VITALS: BP 141/85; PULSE 78; RESP 16; TEMP 36.7; O2SAT 98
[2024-07-25] MEDS: ACETAMINOPHEN 500 MG TABLET 1000 MG PO (07:00)
[2024-07-25] MEDS: LACTATED RINGERS 1,000 ML 30 ML IV CONT ×2 (07:00→08:21)
--- NOTE | 2024-07-25 07:26 | WPDHPUPDATE1 ---
History and Physical Update Update Date/Time: 07/25/24 07:26 History and Physical has been reviewed, including an updated exam of the patient. There are NO changes in the patient's condition. Risks, benefits, and alternatives have been discussed and questions answered. Patient agrees to proceed with procedure.
--- NOTE | 2024-07-25 07:26 | PM.HPGS ---
History of Present Illness History of Present Illness Consent: Risks, benefits, and alternatives have been discussed and questions answered. Patient agrees to proceed with procedure. Chief complaint: post menopausal bleeding Narrative: Faith Palomares is a 49 year old female who went 18 months without a cycle and then had 4 to 5 days of postmenopausal bleeding. Options were reviewed. Labs are consistent with post menopause. Plan to proceed with D&C hysteroscopy. Risks infection, bleeding, perforation, and possible pathology are reviewed. Patient voices understanding and agrees to proceed. Review of Systems Review of Systems: not repeated day of surgery; patient states no changes in status [facility] Past Medical History Medical History (Updated 07/25/24 @ 07:30 by Chastity Man MD) Obesity, Class III, BMI 40-49.9 (morbid obesity) Colitis Surgical History Surgical History History of foot surgery Plantar fasciotomy. History of 2 sections Family History Family History Grandparent Diabetes mellitus Mother Hypertension Social History Social History Social History: Surrogate medical decision maker: Clark Palomares, spouse. Code status: Full code. Caffeine-none Smoking status: Never smoker Second hand tobacco smoke exposure: No Alcohol intake: current Alcohol use details: ONE PER MONTH Substance use: never Lack of Transportation: No Lack of Food: Never True Current Housing: I Have Housing Concerned About Future Housing: No Difficulty Paying Gas/Electric Bills: No Difficulty Paying for Meds: No Currently Unemployed: No Education: Master's Degree or Higher Difficulty w/ Childcare or Family Care: No Living arrangements: with family Spiritual care concerns: No Meds Home Medications and Allergies Home Medications ?Medication ?Instructions ?Recorded ?Confirmed ?Type cetirizine 10 mg capsule (Zyrtec) 10 mg PO DAILY PRN allergy symptoms 09/17/23 07/18/24 History doxycycline hyclate 100 mg capsule 100 mg PO BID #20 caps 04/04/24 07/18/24 Rx benzonatate 200 mg capsule 200 mg PO TID #30 caps 04/19/24 07/18/24 Rx nirmatrelvir 300 mg (150 mg See Rx Instructions PO .COMPLEX 04/25/24 07/18/24 Rx x2)-ritonavir 100 mg tablet,dose #30 ea pack (Paxlovid) tirzepatide (weight loss) 7.5 7.5 mg (0.5 mL) subcut WEEKLY #2 mL 07/12/24 07/18/24 Rx mg/0.5 mL subcutaneous pen injector (Zepbound) acetaminophen 650 mg 1,300 mg PO PRN PRN pain 07/18/24 07/18/24 History tablet,extended release (8 Hour Pain Reliever) Allergies Allergy/AdvReac Type Severity Reaction Status Date / Time No Known Allergies Allergy Verified 07/18/24 12:26 Vital Signs Vital Signs - 24 hr 07/25/24 07:00 Temperature 98.1 F Pulse Rate 78 Respiratory Rate 16 Blood Pressure 141/85 H Pulse Oximetry 98 Oxygen Delivery Room Air Exam Const: General: healthy appearing and alert Orientation/consciousness: patient oriented x3 Resp: Effort & Inspection: normal respiratory effort Auscultation: clear to auscultation bilaterally Cardio: Rate: regular rate Rhythm: regular rhythm GI: GI Palp: Yes Soft to palpation, No Tenderness to palpation present (GI) and No Palpable mass present Neuro: General: patient oriented x3 Assessment and Plan Assessment and plan (1) Post-menopausal bleeding: Code(s): N95.0 - Postmenopausal bleeding Status: Acute Assessment and Plan: Proceed with D&C hysteroscopy
--- NOTE | 2024-07-25 07:39 | WPDANESEPPF ---
Anes - Initial Pre Proc Eval Procedure: Operation Date: 07/25/24 08:15 Proposed Procedures p Hysteroscopy Dilation and Curettage - Chastity Man MD Date/Time: 07/25/24 07:39 Surgeon: Chastity Man MD Pre Op Diagnosis: post menopausal bleeding Patient Data Age: 49 Gender: F Height: 1.63 m Weight: 117.2 kg Last Vital Signs Temp 36.7 C 07/25/24 07:00 Pulse 78 07/25/24 07:00 Resp 16 07/25/24 07:00 BP 141/85 H 07/25/24 07:00 Pulse Ox 98 07/25/24 07:00 O2 Del Method Room Air 07/25/24 07:00 Allergies Allergy/AdvReac Type Severity Reaction Status Date / Time No Known Allergies Allergy Verified 07/18/24 12:26 Home Medications ?Medication ?Instructions ?Recorded ?Confirmed ?Type cetirizine 10 mg capsule (Zyrtec) 10 mg PO DAILY PRN allergy symptoms 09/17/23 07/18/24 History doxycycline hyclate 100 mg capsule 100 mg PO BID #20 caps 04/04/24 07/18/24 Rx benzonatate 200 mg capsule 200 mg PO TID #30 caps 04/19/24 07/18/24 Rx nirmatrelvir 300 mg (150 mg See Rx Instructions PO .COMPLEX 04/25/24 07/18/24 Rx x2)-ritonavir 100 mg tablet,dose #30 ea pack (Paxlovid) tirzepatide (weight loss) 7.5 7.5 mg (0.5 mL) subcut WEEKLY #2 mL 07/12/24 07/18/24 Rx mg/0.5 mL subcutaneous pen injector (Zepbound) acetaminophen 650 mg 1,300 mg PO PRN PRN pain 07/18/24 07/18/24 History tablet,extended release (8 Hour Pain Reliever) Patient hx anesthesia problems: none Family hx anesthesia problems: none Results Review: All pre-operative results and documents have been reviewed as part of the pre-operative evaluation. [facility] Past Medical History Medical History Obesity, Class III, BMI 40-49.9 (morbid obesity) Colitis Surgical History Surgical History History of foot surgery Plantar fasciotomy. History of 2 sections Family History Family History Grandparent Diabetes mellitus Mother Hypertension Social History Social History Social History: Surrogate medical decision maker: Clark Palomares, spouse. Code status: Full code. Caffeine-none Smoking status: Never smoker Second hand tobacco smoke exposure: No Alcohol intake: current Alcohol use details: ONE PER MONTH Substance use: never Lack of Transportation: No Lack of Food: Never True Current Housing: I Have Housing Concerned About Future Housing: No Difficulty Paying Gas/Electric Bills: No Difficulty Paying for Meds: No Currently Unemployed: No Education: Master's Degree or Higher Difficulty w/ Childcare or Family Care: No Living arrangements: with family Spiritual care concerns: No Anes - Eval Final PreProcedure Day of Procedure 07/25/24 07:39 Patient weight: morbidly obese Heart: regular rate and rhythm Lungs: clear to auscultation Airway: Mallampati scale class III Neurological: alert and oriented Last oral intake: >/= 8 hours ASA classification: III Emergent: no Anesthetic plan: proceed Anesthesia type and monitoring: general GIVS and standard monitoring Results Review: All pre-operative results and documents have been reviewed as part of the pre-operative evaluation. Informed Consent: The patient's anesthetic plan and its attendant risks and benefits were discussed with the patient/family/POA. Questions were solicited and answers provided to the satisfaction of the patient/family/POA.
--- NOTE | 2024-07-25 08:15 | S_PTH ---
PATIENT: Faith Palomares LOC: [facility] U#:[id number] AGE/SX: 49/F ROOM: RE07/25/[address]: Chastity Man MD : 1975 BED: DIS: 07/25/2024 SPEC #: [id number] RECD: 07/25/24 10:35 STATUS: MARE REQ #: [id number] KIYA: 07/25/24 08:[address]: Chastity Man DEPT: [facility] Surgical RECD BY: Crystal Candelaria ENTERED: 07/25/24 10:35 SP TYPE: Surgical OTHR DR: Stephany Kelly MD Tissues: A - Endometrial Curettings Procedures: Hematoxylin and Eosin Stain Gross and Microscopic Level 4
[2024-07-25 08:21] VITALS: BP 126/77; PULSE 75; RESP 12; O2SAT 99
--- NOTE | 2024-07-25 08:23 | P.OP_ITS ---
Procedure Note - Detailed Date of Procedure 07/25/24 Pre-op Diagnosis post menopausal bleeding Post-op Diagnosis Same Procedure Performed D&C hysteroscopy Surgeon Chastity Man MD Anesthesia MAC Findings Cervix is stenotic. Uterus sounds to 9cm and appears grossly normal. Description of Procedure The patient is taken to the operating room and placed under anesthesia in the dorsal lithotomy position. She was prepped and draped in usual sterile fashion. [place] speculum was placed in the vagina and the cervix grasped on the anterior lip with a tenaculum. Upon attempting to sound the uterus there was internal cervical stenosis encountered. The Hegar dilators were not successful. The hydrodissection was not successful. The os Finders are opened and placed and the internal os is able to be opened. The uterus was then sounded to 9cm. The diagnostic hysteroscope was placed and with no abnormalities encountered it is removed. The sharp curette was used to curette the endometrium until a good uterine cry was noted in all areas. All instruments are removed. Sponge, needle, and instrument counts are correct per the OR staff. The patient was taken to recovery in stable condition. Estimated Blood Loss 5 Drains No Packing No Pathology Yes (Endometrial curettings) Complications No immediate complications Condition Stable Disposition PACU
[2024-07-25 08:30] VITALS: BP 125/97; PULSE 73; RESP 14; O2SAT 97
[2024-07-25 09:00] VITALS: BP 155/91; PULSE 66; RESP 14
== END 2024-07-25 09:18 | disposition home or self-care (01) ==
PROVIDERS: PCP Family Medicine; Visit Provider Obstetrics & Gynecology Gynecology
PROC: 0U5B8ZZ Destruction of Endometrium, Via Natural or Artificial Opening Endoscopic (ICD-10-PCS; CPT 58563; principal; 2024-07-25 08:15)
DX: N95.0 Postmenopausal bleeding (principal); E66.01 Morbid (severe) obesity due to excess calories; Z68.41 Body mass index [BMI] 40.0-44.9, adult
CPT/HCPCS: 58558; 88305; A9270; J2003; J2250; J2405; J2704; J3010; J7120

== ENCOUNTER 2024-08-10 14:50 | Outpatient (CLI) | payer BC, SELFPAY ==
--- NOTE | ~2024-08-10 | DEXA_ITS ---
Bone Density Report Name: GEOVANNY KELLER Age: 49 Sex: Female Ethnicity: White Date of : 1975 Indication: postmenopausal; screening for osteoporosis; height loss; Referring Provider: LORETTA CLIFTON Study: Bone densitometry was performed. Exam Date: August 10, 2024 Accession number: [id number] Bone Density: Region BMD T-score Z-score Classification AP Spine(L1-L4) 1.190 1.3 2.1 Normal Femoral Neck (Left) 0.704 -1.3 -0.5 Osteopenia Total Hip (Left) 1.067 1.0 1.5 Normal Femoral Neck (Right) 0.760 -0.8 0.0 Normal Total Hip (Right) 1.016 0.6 1.1 Normal Total Hip Mean 1.041 0.8 1.3 Normal World Health Organization criteria for BMD impression classify patients as: Normal (T-score at or above -1.0), Osteopenia (T-score between -1.0 and -2.5), or Osteoporosis (T-score at or below -2.5). 10-year Fracture Risk(1): Major Osteoporotic Fracture 3.8% Hip Fracture 0.2% Reported Risk Factors: [place] (), Neck BMD=0.704, BMI=45.8 (1) FRAX(R) Version 3.08. Fracture probability calculated for an untreated patient. Fracture probability may be lower if the patient has received treatment. Clinical Information Provided by Patient: Patient maximum height was 64 Menopause Age: 47 No regular weight bearing exercise Drinks caffeinated beverages Onset of menses at age 11 Number of children 2 Impression: The patient has low bone mass, based on the Left Femoral Neck T-score. The patient has an estimated ten-year risk of hip fracture of 0.2% and an estimated ten-year risk of major fracture of 3.8%, based on the WHO FRAX algorithm. Discussion: BONE DENSITY IS LOW AT ONE OR MORE SKELETAL SITES. This patient's lowest T-score is low at one or more skeletal sites. It meets the World Health Organization's (WHO) criteria for ?low bone mass? (T-score between -1.0 and -2.5). The patient's 10-year risk of fracture as calculated by FRAX is less than the threshold where pharmacological therapy is recommended by the National Osteoporosis Foundation (NOF). However, all treatment decisions require clinical judgment and consideration of individual patient factors, including patient preferences, comorbidities, previous drug use, risk factors not captured in the FRAX model (e.g., frailty, falls, vitamin D deficiency, increased bone turnover, interval significant decline in bone density) and possible under or overestimation of fracture risk by FRAX. The patient should follow a healthful lifestyle (good nutrition with adequate calcium and vitamin D, and appropriate weight-bearing exercise). Follow-Up: Consider repeating this study in 2 to 3 years to reassess this patient's status, or sooner if there is some new clinical indication. Reported by: ANKIT on 08/10/2024 3:12:00 PM. Reviewed, dictated and finalized at location A.
== END 2024-08-10 14:51 | disposition home or self-care (01) ==
LOC: MICIMG 14:51
PROVIDERS: PCP Family Medicine; Visit Provider Obstetrics & Gynecology Gynecology
DX: M85.852 Other specified disorders of bone density and structure, left thigh (principal); Z78.0 Asymptomatic menopausal state
CPT/HCPCS: 77080

== ENCOUNTER 2024-08-23 16:02 | Outpatient (CLI) | payer BC, SELFPAY ==
--- NOTE | ~2024-08-23 | MM_ITS ---
EXAMINATION: MM screening bienvenido BI w talisha HISTORY: Screening TECHNIQUE: Craniocaudal and mediolateral oblique 3-D tomosynthesis images were obtained and synthetic 2-D images were generated. CAD analysis was submitted and interpreted. COMPARISON: Comparison to multiple prior studies sequentially, with oldest reviewed study dated 06/04. BREAST PARENCHYMAL COMPOSITION: Not Dense: The breasts are almost entirely fatty. FINDINGS: There is no evidence of suspicious mass, calcification, or architectural distortion to sugg est malignancy in either breast. There has been no suspicious interval change. IMPRESSION: 1. No mammographic evidence of malignancy. 2. Recommend routine screening mammography in one year. BI-RADS Category 1: Negative Reviewed, dictated and finalized at location A.
--- OUTSIDE RECORDS SUMMARY | 2024-08-23 16:04 | XMS_ITS | Clinical Summary ---
Author Organization [facility] Address [address] Attn: Epic Prelude ADT ABNER MARCIAL [id number] Care Team Providers Care Mat Worker Name Role Phone Unavailable Primary Care Provider [...] Flex Sig/CT Colonography Q 5 years 2019 ZOSTER VACCINE (1 of 2) 01/30/2024 INFLUENZA VACCINE (#1) 2024
== END 2024-08-23 16:03 | disposition home or self-care (01) ==
LOC: ANHIMG 16:03
PROVIDERS: PCP Family Medicine; Visit Provider Family Medicine
DX: Z12.31 Encounter for screening mammogram for malignant neoplasm of breast (principal)
CPT/HCPCS: 77063; 77067